=== PATIENT | male | born 1995 | race Caucasian/White ===

== ENCOUNTER 2025-07-27 11:09 | Observation (INO) ==
[2025-07-27] MEDS: SODIUM CHLORIDE 0.9% 1,000 ML IV ONE (11:24)
--- NOTE | 2025-07-27 11:38 | Emergency Department Note ---
History of Present Illness General Chief Complaint: Vomiting Stated Complaint: VOMITING BLOOD, UNABLE TO EAT/DRINK Time Seen by Provider: 07/27/25 11:20 History of Present Illness Provider Complaint: abdominal pain Onset (ago): 3 day(s) Pain Consistency: constant Location: epigastric Severity: moderate Maximum Pain Intensity: 6 Current Pain Intensity: 6 Quality: + stabbing and + sharp Relieved By: + nothing Exacerbated By: + nothing Context: no foreign travel, no possible food poisoning, no sick contacts, no recent antibiotic use, no recent surgery/procedure or no recent injury Associated Symptoms: + nausea, + vomiting, + fever, + chills, + hematemesis (Patient reports mix of hematemesis and coffee-ground emesis) and + headache; no diarrhea, no constipation, no dysuria, no hematochezia, no melena, no hematuria, no chest pain and no breathing difficulty Home Medications Medication Instructions Recorded Confirmed Type omeprazole 40 mg capsule,delayed 40 mg PO BID 07/27/25 07/27/25 History release Allergies Allergy/AdvReac Type Severity Reaction Status Date / Time strawberry Allergy Unknown Unverified 07/27/25 13:15 Past Med/Surg History Problem List (Updated 07/27/25 @ 13:19 by Ilia Bahena MD) Abdominal pain (Acute) UGIB (upper gastrointestinal bleed) (Acute) Medical History (Updated 07/27/25 @ 13:19 by Ilia Bahena MD) No pertinent past medical history No pertinent family history Surgical History (Updated 07/27/25 @ 11:39 by Ilia Bahena MD) No pertinent past surgical history Social History Smoking Status: Current every day smoker Tobacco Type: E-cigarettes / Vaping Preferred Language: Amharic Feels Safe at Home: Yes Physical Exam 2 Vital Signs: Vital Signs - 24 hr 07/27/25 11:11 07/27/25 13:16 Temperature 36.3 C L Temperature Source Temporal Artery Sc an Pulse Rate 83 58 L Respiratory Rate 18 Respiratory Effort / Characteristics Non-Labored Sponta neous Respiratory Depth Normal Respiratory Patter n Regular Blood Pressure 105/70 Blood Pressure Katerina n 81 Pulse Oximetry 98 Oxygen Delivery Me thod Room Air Sepsis Recent Feve r Within 48 Hours No Sepsis New/Unexpla ined Change in Men delia Status N/A Sepsis Action Take n by Nursing No Action Required Physical Exam: Physical Exam GENERAL: oriented to person, place, and time. appears well-developed and well- nourished. She does not appear distressed. HENT: Exam performed. -Head: Normocephalic and atraumatic. -Right Ear: External ear normal. No mastoid erythema -Left Ear: External ear normal. No mastoid erythema -Mouth/Throat: The oropharynx is clear and moist. No trismus in the jaw. No dental abscesses or uvula swelling. No oropharyngeal exudate or tonsillar abscesses. EYES: Conjunctivae and EOM are normal.Right eye exhibits no discharge. Left eye exhibits no discharge. No scleral icterus. NECK: Normal range of motion. Neck supple. No JVD present. No tracheal deviation and normal range of motion present. CV: Normal rate, regular rhythm, normal heart sounds and intact distal pulses. There is no peripheral edema. Palpable radial pulses bue. PULM/CHEST: Effort normal and breath sounds normal. No respiratory distress. No stridor. no wheezes.no rales. -Chest Wall: no tenderness to palpation ABD: The abdomen is soft. Bowel sounds are normal. no distension. No mass is present. There is tenderness to palpation of the epigastric area. There is no rebound, no guarding, no Tatum's sign and no tenderness at McBurney's point. Rovsig negative MUSC/SKEL: Normal range of motion. There is no peripheral edema, tenderness or deformity. NEURO: Motor and sensation grossly intact. SKIN: Skin is warm and dry. not diaphoretic. PSYCH: normal mood and affect. Behavior is normal. Judgment and thought content normal. Course Course 1120: The patient was evaluated in room D5. A complete history and physical exam was performed Cardiac monitoring: An order was placed for continuous cardiac monitoring. The monitor shows a rate of 80 with sinus rhythm interpreted by me 1235: Patient increasingly diaphoretic and reporting increasing pain. Morphine ordered for the patient. Patient will be started on Protonix bolus and drip. 1309: Vital signs stable. Labs and imaging are unremarkable for acute process however given the patient's reported hematemesis coffee-ground emesis and continued abdominal pain patient will be evaluated for admission by the [facility] team for possible GI evaluation and endoscopy. Patient is in agreement with this plan and states he would like to find out why he keeps vomiting blood. 1317: Vital signs stable. Spoke with Dr. Cornelius Benites hospitalist who agrees to evaluate patient for admission. Administered Medications Discontinued Medications Sodium Chloride (Nss) 1,000 mls @ 999 mls/hr IV .Q1H1M ONE Stop: 07/27/25 12:20 Last Admin: 07/27/25 11:24 Dose: 999 mls/hr Documented By: CESIA Morphine Sulfate (Morphine Sulfate 2 Mg/Ml Carp) 2 mg IV NOW STA Stop: 07/27/25 12:35 Last Admin: 07/27/25 12:52 Dose: 2 mg Documented By: CESIA Medical Decision Making Laboratory Data Attestation: I reviewed the patient's lab results. 07/27/25 11:21 07/27/25 11:21 Lab Results 07/27/25 07/27/25 Range/Units 11:21 11:39 WBC 10.24 (4.8-10.8) K/ul RBC 4.95 (4.70-6.10) M/uL Hgb 13.7 L (14.0-18.0) g/dl Hct 40.1 L (42.0-52.0) % MCV 81.0 (80.0-100.0) fL MCH 27.7 (25.0-34.0) pg MCHC 34.2 (32.0-36.0) g/dL RDW Std Deviation 41.6 (36.4-46.3) fL RDW Coeff of Gigi 14.2 (11.5-14.5) % Plt Count 297 (130-400) K/uL MPV 10.6 (9.4-12.4) fL Immature Gran % (Auto) 0.3 % Neut % (Auto) 77.1 % Lymph % (Auto) 15.5 % Orange % (Auto) 6.6 % Eos % (Auto) 0.2 % Baso % (Auto) 0.3 % Neut # (Auto) 7.89 H (1.40-6.50) K/uL Lymph # (Auto) 1.59 (1.20-3.40) K/uL Orange # (Auto) 0.68 H (0.11-0.59) K/uL Eos # (Auto) 0.02 (0.00-0.50) K/uL Baso # (Auto) 0.03 (0.00-0.20) K/uL Immature Gran # (Auto) 0.03 (0.01-0.20) K/uL PT 11.3 (9.0-12.0) Seconds INR 1.1 (0.9-1.1) APTT 27 (21-31) Seconds PTT Ratio 1.0 Sodium 139 (136-145) mmol/L Potassium 3.6 (3.5-5.1) mmol/L Chloride 102 (98-107) mmol/L Carbon Dioxide 26 (21-32) mmol/L Anion Gap 11 (3-11) BUN 15 (6-23) mg/dl Creatinine 1.05 (0.6-1.4) mg/dl Est Cr Clr Drug Dosing 96.2 ml/min eGFR 97.93 BUN/Creatinine Ratio 14.3 (10-20) Glucose 99 (70-99(Fasting)) mg/dl Calcium 9.8 (8.6-10.3) mg/dl Total Bilirubin 0.9 (0.2-1.0) mg/dl AST 19 (13-39) U/L ALT 17 (7-52) U/L Alkaline Phosphatase 55 (34-104) U/L Total Protein 8.6 H (6.0-8.3) gm/dl Albumin 4.5 (3.4-5.0) gm/dl Globulin 4.1 H (2.5-4.0) gm/dl Albumin/Globulin Ratio 1.1 (0.9-2) Lipase 53 (11-82) U/L Blood Type O Negative Antibody Screen NEGATIVE Imaging Data Radiologist's Impression: Abdomen/Pelvis CT 07/27/25 11:[address] WITH IV CONTRAST CT DOSE: 1858.86 mGy.cm HISTORY: abd pain hemetemesis TECHNIQUE: Multiaxial CT images of the abdomen and pelvis were performed following the IV administration of 90 cc of Optiray, A dose lowering technique was utilized adhering to the principles of ALARA. COMPARISON STUDY: None FINDINGS: ABDOMEN: There are gallstones and gallbladder sludge without evidence of acute cholecystitis. Liver, spleen, pancreas, and adrenal glands are unremarkable. Kidneys show no hydronephrosis or calculi. There are a few scattered mesenteric nodules, largest is a lobulated nodule series 6 image 197 at the right upper quadrant measuring 1.5 cm greatest axial dimension by 2.1 cm craniocaudad axial series 6 image 197 and coronal series 600 image 58. Pelvis: Prostate is mildly enlarged. Urinary bladder is nondistended. There is minimal sigmoid diverticulosis. No acute diverticulitis. Normal appendix. No bowel inflammation or obstruction. On the coronal imaging, the distribution of a large portion of the small bowel to the left abdomen suggests a possible large internal hernia without obstruction versus anatomic variation. No free fluid, free air, or abscess. No enlarged adenopathy. Osseous structures: No acute osseous findings. IMPRESSION: 1. Possible large internal hernia without obstruction versus normal variation. 2. A few small mesenteric nodules measuring up to 2 cm. Differential diagnosis includes mesenteritis, early lymphoma, early carcinoid, and reactive lymph nodes. Suggest follow-up CT scan in 6 months to make sure these findings are not progressive. 3. No other acute findings seen. Otherwise as described. ACT 112: Positive. There are findings on this exam that require communication between the performing entity and the patient following Patient Test Result Information Act ([place] Act 112) guidelines. The above report was generated using voice recognition software. It may contain grammatical, syntax or spelling errors. Electronically signed by: José Cabral M.D. 07/27/2025 12:[address] 07/27/25 11:38 CT head/brain wo con CLINICAL HISTORY: beltran. TECHNIQUE: Multiple axial CT images of the head were obtained without contrast. A dose lowering technique was utilized adhering to the principles of ALARA. COMPARISON: None FINDINGS: No intracranial hemorrhage seen. No mass effect, midline shift, or hydrocephalus. No skull fracture seen. Visualized paranasal sinuses and mastoid air cells are clear. IMPRESSION: No acute findings. ACT 112: Negative or not required by law. The above report was generated using voice recognition software. It may contain grammatical, syntax or spelling errors. Electronically signed by: José Cabral M.D. 07/27/2025 12:32 PM [facility] Narrative 1120: The patient was evaluated in room D5. A complete history and physical exam was performed Cardiac monitoring: An order was placed for continuous cardiac monitoring. The monitor shows a rate of 80 with sinus rhythm interpreted by me 1235: Patient increasingly diaphoretic and reporting increasing pain. Morphine ordered for the patient. Patient will be started on Protonix bolus and drip. 1309: Vital signs stable. Labs and imaging are unremarkable for acute process however given the patient's reported hematemesis coffee-ground emesis and continued abdominal pain [facility] and [facility]. Patient is in agreement with this plan and states he would like to find out why he keeps vomiting blood. 1317: Vital signs stable. [facility] patient for admission. Impression & Plan UGIB (upper gastrointestinal bleed), Abdominal pain Discharge Plan Visit Data Chief Complaint: Vomiting Stated Complaint: VOMITING BLOOD, UNABLE TO EAT/DRINK ED Provider: Ilia Bahena Discharge Problem: UGIB (upper gastrointestinal bleed), Abdominal pain Patient Disposition: Admitted As Inpatient Condition: Fair Forms Stand Alone Forms: [facility] [place] [email or web address] Prescriptions Prescriptions: No Action omeprazole 40 mg capsule,delayed release(DR/EC) 40 mg PO BID Referrals Referrals: PCP,NO [Physician] - Discharge Problem: Abdominal pain Qualifiers: Abdominal location: epigastric Qualified Code(s): R10.13 - Epigastric pain
[2025-07-27 11:52] LABS: Hematocrit (blood only) 40.1 % (42.0-52.0); Hemoglobin 13.7 g/dl (14.0-18.0); Immature Granulocytes # (auto) 0.03 K/uL (0.01-0.20); Immature Granulocytes % (auto) 0.3 %; Mean Corpuscular Hemoglobin 27.7 pg (25.0-34.0); Mean Corpuscular Volume 81.0 fL (80.0-100.0); Platelet Count 297 K/uL (130-400); RDW Standard Deviation 41.6 fL (36.4-46.3); Red Blood Count 4.95 M/uL (4.70-6.10); White Blood Count 10.24 K/ul (4.8-10.8)
[2025-07-27 12:02] LABS: Alanine Aminotransferase 17.0 U/L (7-52); Albumin Globulin Ratio 1.1 (0.9-2); Albumin Level 4.5 gm/dl (3.4-5.0); Alkaline Phosphatase 55.0 U/L (34-104); Anion Gap 11.0 (3-11); Bilirubin,Total 0.9 mg/dl (0.2-1.0); Blood Urea Nitrogen 15.0 mg/dl (6-23); Calcium 9.8 mg/dl (8.6-10.3); Carbon Dioxide 26.0 mmol/L (21-32); Chloride 102.0 mmol/L (98-107); Creatinine Clr Calc Pharmacy 96.2 ml/min; Globulin 4.1 gm/dl (2.5-4.0); Glucose 99.0 mg/dl (70-99(Fasting)); Lipase 53.0 U/L (11-82); Potassium 3.6 mmol/L (3.5-5.1); Sodium 139.0 mmol/L (136-145); Total Protein 8.6 gm/dl (6.0-8.3)
[2025-07-27 12:15] LABS: INR 1.1 (0.9-1.1); Partial Thromboplastin Time 27 Seconds (21-31); Prothrombin Time 11.3 Seconds (9.0-12.0)
--- NOTE | 2025-07-27 12:33 | CT Scan Report ---
CT head/brain wo con CLINICAL HISTORY: beltran. TECHNIQUE: Multiple axial CT images of the head were obtained without contrast. A dose lowering tech nique was utilized adhering to the principles of ALARA. COMPARISON: None FINDINGS: No intracranial hemorrhage seen. No mass effect, midline shift, or hydrocephalus. No skull fracture seen. Visualized paranasal sinuses and mastoid air cells are clear. IMPRESSION: No acute findings. ACT 112: Negative or not required by law. The above report was generated using voice recognition software. It may contain grammatical, syntax o r spelling errors. Electronically signed by: José Cabral M.D. 07/27/2025 12:32 PM
[2025-07-27] MEDS: MoRPHine SULFATE 2 MG/ML CARP IV STA (12:52)
--- NOTE | 2025-07-27 12:56 | CT Scan Report ---
ABDOMEN AND PELVIS CT WITH IV CONTRAST CT DOSE: 1858.86 mGy.cm HISTORY: abd pain hemetemesis TECHNIQUE: Multiaxial CT images of the abdomen and pelvis were performed following the IV administrat ion of 90 cc of Optiray, A dose lowering technique was utilized adhering to the principles of ALARA. COMPARISON STUDY: None FINDINGS: ABDOMEN: There are gallstones and gallbladder sludge without evidence of acute cholecystitis. Liver, spleen, pancreas, and adrenal glands are unremarkable. Kidneys show no hydronephrosis or calculi. The re are a few scattered mesenteric nodules, largest is a lobulated nodule series 6 image 197 at the [facility] upper quadrant measuring 1.5 cm greatest axial dimension by 2.1 cm craniocaudad axial series 6 im age 197 and coronal series 600 image 58. Pelvis: Prostate is mildly enlarged. Urinary bladder is nondistended. There is minimal sigmoid divert iculosis. No acute diverticulitis. Normal appendix. No bowel inflammation or obstruction. On the yomi nal imaging, the distribution of a large portion of the small bowel to the left abdomen suggests a po ssible large internal hernia without obstruction versus anatomic variation. No free fluid, free air, or abscess. No enlarged adenopathy. Osseous structures: No acute osseous findings. IMPRESSION: 1. Possible large internal hernia without obstruction versus normal variation. 2. A few small mesenteric nodules measuring up to 2 cm. Differential diagnosis includes mesenteritis, early lymphoma, early carcinoid, and reactive lymph nodes. Suggest follow-up CT scan in 6 months to make sure these findings are not progressive. 3. No other acute findings seen. Otherwise as described. ACT 112: Positive. There are findings on this exam that require communication between the performing entity and the patient following Patient Test Result Information Act ([place] Act 112) guidelines. The above report was generated using voice recognition software. It may contain grammatical, syntax o r spelling errors. Electronically signed by: José Cabral M.D. 07/27/2025 12:54 PM
[2025-07-27] MEDS ORDERED: PROMETHAZINE 25 MG/51 ML BAG IV PRN (13:22)
--- NOTE | 2025-07-27 13:49 | History & Physical Report ---
Date of Service July 27, 2025 Assessment & Plan (1) Abdominal pain: (2) UGIB (upper gastrointestinal bleed): Plan: 29-year-old male with history of terminal ileum ulcer, presenting with abdominal pain and multiple episodes of hematemesis x 3 days. Hematemesis, likely upper GI bleed History of terminal ileum ulcer Blood pressure on the soft side Hemoglobin 13.7, monitor every 6 hours N.p.o. IV Protonix IV fluids, as needed morphine, Phenergan GI consulted, sent a [place] text message to Dr. Murray Kim Vape Use, Medical Marijuana Use DVT Prophylaxis SCDs for now Full code Disposition Admit to PCU Total time spent 60 minutes including discussion with ER provider, review of records, plan of care with patient, etc. plan of care discussed with patient in detail and at length all questions answered he is understanding, agreeable, comfortable with the plan of care History of Present Illness Chief Complaint: abdominal pain, multiple episodes of hematemesis x 3 days Primary Care Provider: YARITZA Ames 29-year-old male with history of terminal ileum ulcer, presenting with abdominal pain and multiple episodes of hematemesis x 3 days. Patient states that he has a history of terminal ileum ulcer, after having a upper GI endoscopy and colonoscopy around 2 years ago. He has been on omeprazole 20 mg twice a day. Since 3 days ago, the patient has been having persistent epigastric pain associated with multiple episodes of hematemesis, and inability to tolerate oral intake. He also has intermittent melena. Denies dizziness, shortness of breath, chest pain. He was instructed by his PCP toProceed to the ER. Upon arrival, blood pressure 105/73, heart rate 83, afebrile. Hemoglobin 13.7 CT abdomen pelvis showing a large hiatal hernia, mesenteric nodules Patient given Protonix drip, IV morphine. On exam, patient seen sitting up in bed, uncomfortable due to persistent epigastric pain No active nausea during exam, no hematemesis while in the ER No dizziness, shortness of breath, chest pain denies alcohol use or NSAID use Does admit to vaping and medical marijuana use No other new symptoms Allergies Allergy/AdvReac Type Severity Reaction Status Date / Time strawberry Allergy Unknown Unverified 07/27/25 13:15 Home Medications Medication Instructions Recorded Confirmed Type omeprazole 40 mg capsule,delayed 40 mg PO BID 07/27/25 07/27/25 History release Past Med/Surg History Problem List (Updated 07/27/25 @ 13:19 by Ilia Bahena MD) Abdominal pain (Acute) UGIB (upper gastrointestinal bleed) (Acute) Medical History (Updated 07/27/25 @ 13:19 by Ilia Bahena MD) No pertinent past medical history No pertinent family history Surgical History (Updated 07/27/25 @ 11:39 by Ilia Bahena MD) No pertinent past surgical history Social History Smoking Status: Current every day smoker Tobacco Type: E-cigarettes / Vaping Preferred Language: Tongan Feels Safe at Home: Yes Review of Systems Review of Systems: all noted and negative except for above Physical Exam Physical Exam: General- oriented x 3, not in distress, speaks in sentences with no effort or accessory muscle use Head- atraumatic Eyes- PERRL, EOMI, anicteric ENT- oropharynx clear Neck- supple, no JVD, no adenopathy, no thyromegaly; carotids +2/2, no bruits appreciated Lungs- clear to auscultation bilaterally, no rales/wheezes Heart- normal rate, regular rhythm; no murmur, no gallop, no rub appreciated Abdomen- normal bowel sounds, nondistended, soft, mild tenderness epigastric region, no masses or hepatosplenomegaly Extremities- no pretibial edema, no calf tenderness; peripheral pulses intact Neuro- alert, oriented x 3; CN 2-12 grossly intact; motor 5/5 bilaterally;sensation 100% on all extremities; no other gross focal neurologic deficits Skin- warm & dry Results & Data Results & Data Vital Signs (Past 12 Hours) Vital Signs Temp Pulse Resp BP Pulse Ox O2 Del Method 07/27/25 13:24 59 L 20 112/67 95 Room Air 07/27/25 13:16 58 L 07/27/25 11:11 36.3 C L 83 18 105/70 98 Room Air all noted and reviewed including below Code Status & VTE Plan VTE Prophylaxis Plan VTE Prophylaxis will be ordered: Yes (1) Abdominal pain Abdominal location: epigastric Qualified Code(s): R10.13 - Epigastric pain
[2025-07-27] MEDS: HYDROmorphone INJ 0.5 MG/0.5 ML SYR IV STA (13:50)
[2025-07-27] MEDS: ACETAMINOPHEN 1,000 MG/100 ML VIAL IV SCH (13:50)
[2025-07-27] MEDS: PANTOprazole 40 MG in DEXTROSE 5% MINI-B 100 ML IV SCH (14:11)
[2025-07-27] MEDS: PANTOPRAZOLE BOLUS/DRIP IV STA (15:03)
--- NOTE | 2025-07-27 15:21 | Gastrointestinal Consultation ---
Date of Consultation July 27, 2025 Assessment & Plan (1) Coffee ground emesis: -Continue IV PPI gtt -Continue to monitor H/H -NPO after midnight for EGD on 07/28/25 -May benefit from repeat CT imaging to ensure resolution of abnormalities in the coming weeks Supervising Physician Co-Signing Physician Notes I saw and examined this patient with our nurse practitioner and agree with her assessment and plan. Clinical picture consistent with an upper GI bleed. Initially developed abdominal pain with nausea and vomiting of bilious material subsequently followed by hematemesis of bright red blood and then coffee ground emesis. With this presentation need to consider Chitra-Carrillo tear in addition to peptic ulcer disease. Denies use of NSAIDs or history of liver disease. CT scan reported by radiology suggest the possibility of an internal hernia versus anatomical variant with small bowel localized predominantly to the left abdomen. No signs of obstruction. Recommend having surgery consult on CT scan abnormality. Patient initially presented with fever possible viral syndrome which led to the vomiting and ultimately an upper GI bleed. Will proceed with endoscopy in AM. Continue IV PPI. History of Present Illness Reason for Consultation: Coffee ground emesis Attending Physician: Rayray Nails MD History of Present Illness Patient is 29 yo male who was experiencing fever, nausea, and vomiting in addition to constipation at home since Saturday07/23/25. He notes that he began vomiting significantly and initially saw bright red hematemesis and then eventually had coffee ground emesis. He notes that he has intermittent epigastr ic pain for 1.5+ years. He has periods of epigastric burning that lasts days. He had a Colonoscopy & EGD 1 year ago-- ulcers on TI apparently. Takes Omeprazole 40 mg BID at home. This GI care was done in [place], [place]. He has been on Carafate in the past as well. He was to have repeat EGD & colonoscopy as an outpatient but did not yet do this. No alcohol, liver disease, abdominal surgery. No significant NSAID use. Mother has a history of colostomy for unspecified bowel perforation. Paternal grandfather with colon cancer. IBD possibly on maternal side. CT Scan of the abdomen/pelvis: IMPRESSION: 1. Possible large internal hernia without obstruction versus normal variation. 2. A few small mesenteric nodules measuring up to 2 cm. Differential diagnosis includes mesenteritis, early lymphoma, early carcinoid, and reactive lymph nodes. Suggest follow-up CT scan in 6 months to make sure these findings are not progressive. 3. No other acute findings seen. Otherwise as described. He notes that he has intermittent associated neuropathy/paresthesias. WBC 10,240. H/H 13.7/40.1. LFTs unremarkable. Lipase 53. He is currently on a Pantoprazole drip. Allergies Allergy/AdvReac Type Severity Reaction Status Date / Time strawberry Allergy Unknown Unverified 07/27/25 13:15 Home Medications Medication Instructions Recorded Confirmed Type omeprazole 40 mg capsule,delayed 40 mg PO BID 07/27/25 07/27/25 History release Patient History Medical History No pertinent past medical history No pertinent family history Surgical History No pertinent past surgical history Social History Smoking Status: Current every day smoker Tobacco Type: E-cigarettes / Vaping Preferred Language: Greenlandic Feels Safe at Home: Yes Review of Systems Constitutional: no fever and no chills Respiratory: no cough and no dyspnea Gastrointestinal: + abdominal pain, + nausea, + coffee bashir und emesis and + hematemesis; no diarrhea/loose stools and no blood in stools Physical Exam Constitutional: well developed Respiratory: normal respiratory effort Cardiovascular: Rate/Rhythm: regular rate Gastrointestinal (Abdomen): Inspection/Auscultation: abdomen not distended Percussion/Palpation: + abdomen tender and abdomen soft Psychiatric: Orientation: alert and oriented x 3 Results & Data Vital Signs (Past 12 Hours) Vital Signs Temp Pulse Resp BP Pulse Ox O2 Del Method 07/27/25 14:18 Room Air 07/27/25 13:30 71 17 121/76 96 Room Air 07/27/25 13:24 59 L 20 112/67 95 Room Air 07/27/25 13:16 58 L 07/27/25 11:11 36.3 C L 83 18 105/70 98 Room Air Laboratory Results Laboratory Results - last 48 hr 07/27/25 07/27/25 11:21 11:39 WBC 10.24 RBC 4.95 Hgb 13.7 L Hct 40.1 L MCV 81.0 MCH 27.7 MCHC 34.2 RDW Std Deviation 41.6 RDW Coeff of Gigi 14.2 Plt Count 297 MPV 10.6 Immature Gran % (Auto) 0.3 Neut % (Auto) 77.1 Lymph % (Auto) 15.5 [place] % (Auto) 6.6 Eos % (Auto) 0.2 Baso % (Auto) 0.3 Neut # (Auto) 7.89 H Lymph # (Auto) 1.59 [place] # (Auto) 0.68 H Eos # (Auto) 0.02 Baso # (Auto) 0.03 Immature Gran # (Auto) 0.03 PT 11.3 INR 1.1 APTT 27 PTT Ratio 1.0 Sodium 139 Potassium 3.6 Chloride 102 Carbon Dioxide 26 Anion Gap 11 BUN 15 Creatinine 1.05 Est Cr Clr Drug Dosing 96.2 eGFR 97.93 BUN/Creatinine Ratio 14.3 Glucose 99 Calcium 9.8 Total Bilirubin 0.9 AST 19 ALT 17 Alkaline Phosphatase 55 Total Protein 8.6 H Albumin 4.5 Globulin 4.1 H Albumin/Globulin Ratio 1.1 Lipase 53 Blood Type O Negative Antibody Screen NEGATIVE Diagnostic Findings Abdomen/Pelvis CT 07/27/25 11:[address] WITH IV CONTRAST CT DOSE: 1858.86 mGy.cm HISTORY: abd pain hemetemesis TECHNIQUE: Multiaxial CT images of the abdomen and pelvis were performed following the IV administration of 90 cc of Optiray, A dose lowering technique was utilized adhering to the principles of ALARA. COMPARISON STUDY: None FINDINGS: ABDOMEN: There are gallstones and gallbladder sludge without evidence of acute cholecystitis. Liver, spleen, pancreas, and adrenal glands are unremarkable. Kidneys show no hydronephrosis or calculi. There are a few scattered mesenteric nodules, largest is a lobulated nodule series 6 image 197 at the right upper quadrant measuring 1.5 cm greatest axial dimension by 2.1 cm craniocaudad axial series 6 image 197 and coronal series 600 image 58. Pelvis: Prostate is mildly enlarged. Urinary bladder is nondistended. There is minimal sigmoid diverticulosis. No acute diverticulitis. Normal appendix. No bowel inflammation or obstruction. On the coronal imaging, the distribution of a large portion of the small bowel to the left abdomen suggests a possible large internal hernia without obstruction versus anatomic variation. No free fluid, free air, or abscess. No enlarged adenopathy. Osseous structures: No acute osseous findings. IMPRESSION: 1. Possible large internal hernia without obstruction versus normal variation. 2. A few small mesenteric nodules measuring up to 2 cm. Differential diagnosis includes mesenteritis, early lymphoma, early carcinoid, and reactive lymph nodes. Suggest follow-up CT scan in 6 months to make sure these findings are not progressive. 3. No other acute findings seen. Otherwise as described. ACT 112: Positive. There are findings on this exam that require communication between the performing entity and the patient following Patient Test Result Information Act ([place] Act 112) guidelines. The above report was generated using voice recognition software. It may contain grammatical, syntax or spelling errors. Electronically signed by: José Cabral M.D. 07/27/2025 12:[address] 07/27/25 11:38 CT head/brain wo con CLINICAL HISTORY: beltran. TECHNIQUE: Multiple axial CT images of the head were obtained without contrast. A dose lowering technique was utilized adhering to the principles of ALARA. COMPARISON: None FINDINGS: No intracranial hemorrhage seen. No mass effect, midline shift, or h ydrocephalus. No skull fracture seen. Visualized paranasal sinuses and mastoid air cells are clear. IMPRESSION: No acute findings. ACT 112: Negative or not required by law. The above report was generated using voice recognition software. It may contain grammatical, syntax or spelling errors. Electronically signed by: José Cabral M.D. 07/27/2025 12:32 PM PG Care Time/CCT Total # of Minutes Spent Total Time Spent with Patient: Total time spent is greater than 50% in coordination of care (as documented) at patient's floor/unit and/or counseling patient: Coding Level of Care Code 01050 IN/OBS CONSULT LVL 4,60M Diagnoses Coffee ground emesis K92.0
--- NOTE | 2025-07-27 15:29 | Electrocardiogram Report ---
Test Reason : Blood Pressure : */* mmHG Vent. Rate : 61 BPM Atrial Rate : 61 BPM P-R Int : 260 ms QRS Dur : 88 ms QT Int : 418 ms P-R-T Axes : 51 51 43 degrees QTcB Int : 420 ms Sinus rhythm with 1st degree A-V block Otherwise normal ECG No previous ECGs available Confirmed by Jermain Kwong ([id number]) on 07/27/2025 3:29:26 PM Referred By: REFERRED SELF Confirmed By: Jermain Kwong
[2025-07-27 17:24] LABS: Hematocrit (blood only) 33.9 % (42.0-52.0); Hemoglobin 11.2 g/dl (14.0-18.0)
[2025-07-27] MEDS: MoRPHine SULFATE 2 MG/ML CARP IV PRN (19:36)
--- NOTE | 2025-07-27 22:25 | CT Scan Report ---
Exam(s): CT ABDOMEN + PELVIS Without Contrast EXAM: CT Abdomen and Pelvis Without Intravenous Contrast CLINICAL HISTORY: ffup, new RUQ pain. TECHNIQUE: Axial computed tomography images of the abdomen and pelvis without intravenous contrast. CTDI is 18.44 mGy and DLP is 935.05 mGy-cm. Automated exposure control was utilized for the study. A dose lowering technique was utilized adhering to the principles of ALARA. COMPARISON: CT abdomen and pelvis with contrast dated 07/27/2025 at 1215 hours FINDINGS: Limitations: There is diffuse respiratory artifact, which degrades image quality throughout the examination. Lung bases: Unremarkable. No mass. No consolidation. ABDOMEN: Liver: Unremarkable. Gallbladder and bile ducts: Subtle noncalcified cholelithiasis noted in the gallbladder, measuring up to 11 mm in diameter, similar to the previous examination. No gallbladder wall thickening or biliary dilatation. Pancreas: Unremarkable. No ductal dilation. Spleen: Unremarkable. No splenomegaly. Adrenals: Unremarkable. No mass. Kidneys and ureters: There is excreted contrast in the renal collecting systems and ureters. No hydronephrosis or significant perinephric abnormality. Stomach and bowel: No evidence for bowel obstruction. Evaluation of the bowel mucosa is slightly limited without contrast; however, no definite focal asymmetry suggested. Minimal stool burden. Diverticulosis without definitive findings to suggest diverticulitis. PELVIS: Appendix: A normal-caliber appendix is noted along the lateral retrocecal region of the right lower quadrant. Bladder: The bladder is mildly distended with excreted contrast. No significant bladder wall thickening, accounting for partial decompression. No stones. Reproductive: Unremarkable as visualized. ABDOMEN and PELVIS: Intraperitoneal space: Unremarkable. No free air. No significant fluid collection. Bones/joints: No acute osseous abnormality. Soft tissues: Unremarkable. Vasculature: Unremarkable. No abdominal aortic aneurysm. Lymph nodes: Unremarkable. No enlarged lymph nodes. IMPRESSION: 1. Subtle noncalcified cholelithiasis noted in the gallbladder, measuring up to 11 mm in diameter, similar to the previous examination. No gallbladder wall thickening or biliary dilatation. 2. No evidence for bowel obstruction. Evaluation of the bowel mucosa is slightly limited without contrast; however, no definite focal asymmetry suggested. Minimal stool burden. Diverticulosis without definitive findings to suggest diverticulitis. No free intraperitoneal fluid or pneumoperitoneum. Electronically signed by: Jose Antonio Vergara MD 07/27/25 22:24 PM
[2025-07-28 00:04] LABS: Hematocrit (blood only) 33.5 % (42.0-52.0); Hemoglobin 11.0 g/dl (14.0-18.0)
[2025-07-28] MEDS: SODIUM CHLORIDE 0.9% 1,000 ML IV ONE (06:06)
[2025-07-28 06:14] LABS: Hematocrit (blood only) 35.3 % (42.0-52.0); Hemoglobin 11.7 g/dl (14.0-18.0); Immature Granulocytes # (auto) 0.02 K/uL (0.01-0.20); Immature Granulocytes % (auto) 0.2 %; Mean Corpuscular Hemoglobin 26.5 pg (25.0-34.0); Mean Corpuscular Volume 80.0 fL (80.0-100.0); Platelet Count 218 K/uL (130-400); RDW Standard Deviation 41.1 fL (36.4-46.3); Red Blood Count 4.41 M/uL (4.70-6.10); White Blood Count 8.32 K/ul (4.8-10.8)
[2025-07-28 06:37] LABS: Alanine Aminotransferase 13.0 U/L (7-52); Albumin Globulin Ratio 1.3 (0.9-2); Albumin Level 4.0 gm/dl (3.4-5.0); Alkaline Phosphatase 44.0 U/L (34-104); Anion Gap 10.0 (3-11); Bilirubin,Total 0.8 mg/dl (0.2-1.0); Blood Urea Nitrogen 11.0 mg/dl (6-23); Calcium 9.0 mg/dl (8.6-10.3); Carbon Dioxide 25.0 mmol/L (21-32); Chloride 104.0 mmol/L (98-107); Creatinine Clr Calc Pharmacy 124.2 ml/min; Globulin 3.0 gm/dl (2.5-4.0); Glucose 81.0 mg/dl (70-99(Fasting)); Potassium 3.4 mmol/L (3.5-5.1); Sodium 139.0 mmol/L (136-145); Total Protein 7.0 gm/dl (6.0-8.3)
[2025-07-28 08:56] LABS: Appearance Urine Clear (Clear); Glucose Urine UA Negative (Negative)
--- NOTE | 2025-07-28 10:22 | History & Physical Bridge Note ---
Date of Service July 28, 2025 History & Physical Bridge Note I have examined the patient, reviewed the History & Physical and in the interval since the performance of the History & Physical I have noted the following changes of clinical significance: no changes noted No bleeding overnight. Patient notes 7 abdominal pain. Keep NPO. Continue PPI gtt. Proceed with EGD today for further evaluation. Supervising Physician Co-Signing Physician Notes I saw and examined this patient with our nurse practitioner and agree with her assessment and plan. Hemodynamically stable no further hematemesis. Will proceed with endoscopy.
[2025-07-28] MEDS: cefTRIAXone SODIUM 2,000 MG/50 ML BAG IV SCH (10:28)
[2025-07-28] MEDS: metroNIDAZOLE 500 MG/100 ML BAG IV SCH (10:29)
--- NOTE | 2025-07-28 11:50 | Ultrasound Report ---
US liver CLINICAL HISTORY: concern for acute cholecystitis COMPARISON STUDY: CT of the abdomen and pelvis July 27, 2025. FINDINGS: There is no biliary ductal dilatation. Hepatic echogenicity is mildly increased. No hepatic lesions are identified. Gallstones and sludge within the gallbladder are noted. There is no gallblad taty wall thickening. No sonographic Tatum sign was elicited. There is no pericholecystic fluid. Panc reas is largely obscured by bowel gas. There is no right hydronephrosis. IMPRESSION: 1. Cholelithiasis. No evidence for acute cholecystitis. 2. No biliary ductal dilatation. 3. Obscured pancreas. ACT 112: Negative or not required by law. Electronically signed by: Bal Beaulieu M.D. 07/28/2025 11:49 AM
--- NOTE | 2025-07-28 12:49 | Hospitalist Progress Note ---
Date of Service July 28, 2025 Assessment & Plan (1) Abdominal pain: (2) UGIB (upper gastrointestinal bleed): Plan: 29-year-old male with history of terminal ileum ulcer, presenting with abdominal pain and multiple episodes of hematemesis x 3 days. Hematemesis, likely upper GI bleed History of terminal ileum ulcer Patient presented to the hospital with nausea, vomiting. Hemoglobin of 13.7 on admission; down trended to 11 and is stabilized Continue on IV Protonix Plan for EGD today Possible biliary colic Abnormal CT abdomen findings CT abdomen pelvis showed "the distribution of a large portion of the small bowel to the left abdomen suggests a possible large internal hernia without obstruction versus anatomic variation". Also found to have few small mesenteric nodules measuring up to 2 cm. Patient reports right upper quadrant pain; liver ultrasound shows cholelithiasis with no gallbladder wall thickening Surgery on board; will appreciate recommendation Patient will need repeat CT abdomen/pelvis in 3 months to follow-up on mesenteric nodule; will need further workup if lymph node continues to be enlarged. DVT prophylaxis SCDs Full code Time spent evaluating patient, direct bedside care, chart review, placing orders, interpretation of diagnostic studies, discussion with consultants, patient, and family members, as well as other required patient management activities is 50 minutes Please note the above document was generated using voice recognition software. It may contain grammatical, syntax or spelling errors. Any formal questions or concerns about the content, text or information contained within the body of this dictation should be directly addressed to the provider for clarification Admission and Anticipated Discharge Date Admission Date: July 27, 2025 Subjective Patient seen and examined at bedside. He continues to report abdominal pain and discomfort. Denies any nausea/vomiting overnight. No fever recorded overnight Review of Systems Review of Systems: All systems reviewed & are unremarkable except as noted in Subjective Physical Exam Physical Exam: Constitutional: Alert oriented x 3; not in distress. Respiratory: normal respiratory effort, lungs clear to auscultation, no wheeze, rales, rhonchi. Normal insp/exp effort, no accessory muscle use Cardiovascular: RRR, no murmur, no edema Vessels: no JVD or carotid bruit Chest: normal inspection of chest Abdomen: Tenderness in right upper quadrant Musculoskeletal: no cyanosis or clubbing, extremities motor strength 5/5 Skin: no rashes, warm and dry normal turgor Neurologic: PERRL, EOMI, accommodation nl, no face palsy, no dysarthria CN's II- XI intact bilaterally and moves all extremities Psychiatric: A+Ox3, euthymic affect Results & Data Results & Data Vital Signs (Past 12 Hours) Vital Signs Temp Pulse Resp BP Pulse Ox O2 Del Method 07/28/25 11:33 36.6 C 57 L 20 122/70 96 Room Air 07/28/25 08:00 Room Air 07/28/25 07:44 36.7 C 49 L 19 111/68 97 Room Air 07/28/25 04:25 36.8 C 44 L 16 112/69 96 Room Air (1) Abdominal pain Abdominal location: epigastric Qualified Code(s): R10.13 - Epigastric pain
--- NOTE | 2025-07-28 13:11 | Anesthesiology Consultation ---
Date of Service July 28, 2025 Assessment & Plan Chart Review Chart Review: Acceptable Risk for Surgery and Patient NOT seen in Pre Admission Testing Consults Requested none ASA ASA3 Proposed Anesthesia Anesthesia Type: MAC Risk / Benefits Reviewed With: PT / POA / Parent / Guardian, Accepts Plan and Informed Consent Obtained History Surgery Operation Date: 07/28/25 16:30 Proposed Procedures p Esophagogastroduodenoscopy Dr. Judy Kim MD Height/Weight Height: 5 ft 7 in Weight: 83.7 kg Allergies Allergy/AdvReac Type Severity Reaction Status Date / Time strawberry Allergy Unknown Unverified 07/27/25 13:15 Medications Home Medications Medication Instructions Recorded Confirmed Last Taken omeprazole 40 mg capsule,delayed 40 mg PO BID 07/27/25 07/27/25 Unknown release Active Medications Generic Name Dose Route Start Last Admin Trade Name Freq PRN Reason Stop Dose Admin Pantoprazole Sodium 40 mg/ 100 mls @ 20 mls/hr 07/27/25 13:00 07/28/25 08:33 Dextrose IV 08/26/25 12:59 8 mg/hr Q5H LIANG 20 mls/hr Administration 8 MG/HR Acetaminophen 1,000 mg in 100 mls @ 400 mls/hr 07/27/25 13:45 07/28/25 05:58 Ofirmev IV 07/30/25 13:44 Infused Q8H LIANG Infusion Sodium Chloride 1,000 mls @ 100 mls/hr 07/28/25 05:58 07/28/25 06:06 Nss IV 07/28/25 15:57 100 mls/hr .Q10H ONE Administration Ceftriaxone Sodium 2,000 mg in 50 mls @ 100 mls/hr 07/28/25 10:30 07/28/25 11:06 Rocephin IV 08/07/25 10:29 Infused Q24H LIANG Infusion Metronidazole 500 mg in 100 mls @ 100 mls/hr 07/28/25 11:00 07/28/25 11:29 Flagyl IV 08/07/25 10:59 Infused Q8H LIANG Infusion Protocol Morphine Sulfate 2 mg 07/27/25 13:22 07/27/25 23:28 Morphine Sulfate 2 Mg/Ml Carp IV 08/10/25 13:21 2 mg Q4H PRN Administration moderate to severe pain NPO Date Last Intake of Fluids: 07/27/25 Time Last Intake of Fluids: 16:00 Date Last Intake of Solids: 07/23/25 Time Last Intake of Solids: 18:00 Past Medical History Medical History No pertinent past medical history No pertinent family history Anemia UGI Bleed Hematemesis Exercise / Class Metabolic Activity II 4-5 Yardwork/Stairs/Walk up hill Past Surgical History Surgical History No pertinent past surgical history Past Anesthesia History No Hx of Anesthesia Complications and No Family Hx of Anesthesia Complications History of PONV No Hx of PONV and No Hx of Motion Sickness Social History Smoking Status: Current every day smoker Hx Alcohol Use: No Hx Substance Use: Yes substance use type: marijuana Substance Use Type Other:: Medical Last Used Substance: Just Prior to Arrival Physical Exam Vital Signs Last Vital Signs Temp 36.6 C 07/28/25 13:03 Pulse 64 07/28/25 13:03 Resp 18 07/28/25 13:03 BP 116/69 07/28/25 13:03 Pulse Ox 98 07/28/25 13:03 O2 Del Method Room Air 07/28/25 13:03 Constitutional + obese; no acute distress ENMT Mouth: no TMJ abnormality Thyromental Distance: > or= 3.5 Finger Breadths Mallampati Class: II Neck normal visual inspection, trachea midline and + facial hair; neck extension not limited Respiratory normal respiratory effort Auscultation: lungs clear to auscultation bilaterally Cardiovascular Rate/Rhythm: regular rate and regular rhythm Heart Sounds: no murmur Vessels: no carotid bruit Musculoskeletal Spine: normal cervical ROM Extremities: extremities normal to inspection Neurologic moves all extremities Motor/Sensory: no sensory deficit Psychiatric Orientation: alert and oriented x 3 Testing Laboratory Results 07/28/25 05:41 PT 11.3 Seconds (9.0-12.0) 07/27/25 11:21 INR 1.1 (0.9-1.1) 07/27/25 11:21 APTT 27 Seconds (21-31) 07/27/25 11:21 Urine Color Yellow 07/28/25 08:47 Urine Appearance Clear (Clear) 07/28/25 08:47 Urine pH 5.5 (4.5-7.5) 07/28/25 08:47 Ur Specific [place] 1.039 (1.000-1.030) H 07/28/25 08:47 Urine Protein Negative (Negative) 07/28/25 08:47 Urine Glucose (UA) Negative (Negative) 07/28/25 08:47 Urine Ketones 3+ (Negative) H 07/28/25 08:47 Urine Nitrite Negative (Negative) 07/28/25 08:47 Ur Leukocyte Esterase Negative (Negative) 07/28/25 08:47 Blood Type O Negative 07/27/25 11:39 Antibody Screen NEGATIVE 07/27/25 11:39 Electrocardiogram Date: 07/27/25 Findings: + NSR @ (SR @ 61 w/ 1st degree AVB)
[2025-07-28] MEDS ORDERED: ATROPINE SULFATE 0.1 MG/ML 10ML SYR IV PRN (13:12)
[2025-07-28 13:16] LABS: Hematocrit (blood only) 34.7 % (42.0-52.0); Hemoglobin 12.2 g/dl (14.0-18.0)
--- NOTE | 2025-07-28 13:58 | Anesthesiology Progress Note ---
Date of Service July 28, 2025 Anesthesia Post Procedure Vital Signs Vital Signs: Temp Pulse Pulse Pulse Resp BP Pulse Ox 07/28/25 13:51 64 16 131/75 97 07/28/25 13:36 59 L 16 118/68 98 07/28/25 13:03 36.6 C 64 18 116/69 98 07/28/25 11:33 36.6 C 57 L 20 122/70 96 07/28/25 08:00 07/28/25 07:44 36.7 C 49 L 19 111/68 97 07/28/25 04:25 36.8 C 44 L 16 112/69 96 07/27/25 23:06 36.8 C 52 L 18 118/72 98 07/27/25 21:45 45 L 07/27/25 19:28 36.7 C 67 18 121/77 97 07/27/25 17:28 37.0 C 84 20 115/70 98 07/27/25 15:30 55 L 07/27/25 15:30 36.9 C 57 L 16 117/68 94 07/27/25 14:18 O2 Del Method 07/28/25 13:51 Room Air 07/28/25 13:36 Room Air 07/28/25 13:03 Room Air 07/28/25 11:33 Room Air 07/28/25 08:00 Room Air 07/28/25 07:44 Room Air 07/28/25 04:25 Room Air 07/27/25 23:06 Room Air 07/27/25 21:45 07/27/25 19:28 Room Air 07/27/25 17:28 Room Air 07/27/25 15:30 07/27/25 15:30 Room Air 07/27/25 14:18 Room Air Pain Intensity Head: Pain Intensity: 5 Medial Abdomen: Pain Intensity: 6 Transfer of Care Handoff Completed per policy Notes Mental Status: alert / awake / arousable Patient Amnestic to Procedure: Yes Nausea / Vomiting: adequately controlled Pain: adequately controlled Airway Patency, RR, SpO2: stable & adequate BP & HR: stable & adequate Hydration State: stable & adequate Anesthetic Complications: no major complications apparent
[2025-07-28] MEDS: THIAMINE HCL 250 MG in SODIUM CHLORIDE 0.9% 50 ML IV SCH (14:38)
--- NOTE | 2025-07-28 15:49 | Surgery Consultation ---
Date of Consultation July 28, 2025 Assessment & Plan (1) Abdominal pain: This is a 29yM who presents to the [facility] ED on 07/27/25 with complaints of abdominal pain associated with nausea and vomiting. Patient states starting Saturday he began having fevers/chills and upper abdominal pain with nausea/vomiting. We have been asked to weigh in regarding possible internal hernia vs anatomical variant on his CT scan in addition to his RUQ pain. Both CT scans show no evidence of bowel obstruction. He does not have any past surgical history making internal hernia less likely. He also underwent a RUQ US that showed + gall stones but no evidence of cholecystitis. Today's blood work shows WBC 8.3, Hbg 12.2, Cr 0.9. His vitals are stable. Patient's abdomen is soft with discomfort in the upper and right side. GI team is on board and planning on performing an EGD today. He could potentially have a gastroenteritis vs ulcer as he has in the past. Do not believe his gallbladder is causing his presenting symptomatology. Do not believe he has a true internal hernia, could be anatomical variant. Agree with GI workup. Continue IV hydration and PPI. He may also see us as an outpatient for consideration of elective kassie down the road should it ever become an issues. Will follow up. as above. I reviewed pt's ct scan with Dr. Beaulieu. Doubt internal hernia. gallstone without cholecystitis. doubt the etiology of his symptoms. suspect gastroenteritis with likel evan lissette tear from vomitting "over 30 times". no current indication for surgical intervention. supportive care (2) Coffee ground emesis: History of Present Illness Attending Physician: Eric Wolff MD History of Present Illness This is a 29yM who presents to the [facility] ED on 07/27/25 with complaints of abdominal pain associated with nausea and vomiting. Patient states starting Saturday he began having fevers/chills and upper abdominal pain with nausea/vomiting. He went to [facility] ER where he was diagnosed with gastritis and ERIKA and sent home. He's continued to have symptoms through the weekend and called his PCP who referred patient to come into the ER. He states he has had >30 bouts of vomiting that initially started out bile, but then progressed to a more coffee ground appearance. He has pain in his upper abdomen. He has felt this in the past, but not to this severity. He has had both EGD and colonoscopy. EGD in the past showed an ulcer in the small bowel that apparently had a benign pathology. He has had polyps on colonoscopy. He also voices a + headache, constipation, and going a long time wihtout voiding since symptoms began. In the ER there was question of internal hernia noted on his admitting CT scan, without any evidence of obstruction. Follow up CT scan show cholelithiasis, no evidence of bowel obstruction, or mention of internal hernia. His kids have recently been sick with HFM disease. The patient never had surgery on his abdomen before. Allergies Allergy/AdvReac Type Severity Reaction Status Date / Time strawberry Allergy Unknown Unverified 07/27/25 13:15 Home Medications Medication Instructions Recorded Confirmed Type omeprazole 40 mg capsule,delayed 40 mg PO BID 07/27/25 07/27/25 History release Patient History Medical History No pertinent past medical history No pertinent family history Surgical History No pertinent past surgical history Social History Smoking Status: Current every day smoker Tobacco Type: E-cigarettes / Vaping Hx Alcohol Use: No Hx Substance Use: Yes Last Used Substance: Just Prior to Arrival Substance Use Type Other:: Medical Preferred Language: Brazilian Communication Ability: Effective Brattice Builder Required: No Beliefs That Will Affect Care: None Current Living Situation: Spouse Feels Safe at Home: Yes Assistive Devices: None Review of Systems Constitutional: + fever and + chills Respiratory: no dyspnea Gastrointestinal: + abdominal pain (upper abdomen), + naus ea, + vomiting and + constipation Genitourinary: + problem reported (infrequent voiding) Physical Exam Physical Exam: awake, alert, no distress Constitutional: well developed and well nourished Respiratory: normal respiratory effort Gastrointestinal (Abdomen): Percussion/Palpation: + abdomen tender (upper abd and off to R) and abdomen soft Results & Data Vital Signs (Past 12 Hours) Vital Signs Temp Pulse Pulse Resp BP Pulse Ox O2 Del Method 07/28/25 14:38 97.9 F 65 19 124/77 96 Room Air 07/28/25 14:32 Room Air 07/28/25 14:08 64 16 121/79 97 Room Air 07/28/25 13:51 64 16 131/75 97 Room Air 07/28/25 13:36 59 L 16 118/68 98 Room Air 07/28/25 13:03 97.9 F 64 18 116/69 98 Room Air 07/28/25 11:33 97.9 F 57 L 20 122/70 96 Room Air 07/28/25 08:00 Room Air 07/28/25 07:44 98.1 F 49 L 19 111/68 97 Room Air 07/28/25 04:25 98.2 F 44 L 16 112/69 96 Room Air Diagnostic Findings US liver CLINICAL HISTORY: concern for acute cholecystitis COMPARISON STUDY: CT of the abdomen and pelvis July 27, 2025. FINDINGS: There is no biliary ductal dilatation. Hepatic echogenicity is mildly increased. No hepatic lesions are identified. Gallstones and sludge within the gallbladder are noted. There is no gallbladder wall thickening. No sonographic Tatum sign was elicited. There is no pericholecystic fluid. Pancreas is largely obscured by bowel gas. There is no right hydronephrosis. IMPRESSION: 1. Cholelithiasis. No evidence for acute cholecystitis. 2. No biliary ductal dilatation. 3. Obscured pancreas. ACT 112: Negative or not required by law Electronically signed by: Bal Beaulieu M.D. 07/28/2025 11:49 AM Exam(s): CT ABDOMEN + PELVIS Without Contrast EXAM: CT Abdomen and Pelvis Without Intravenous Contrast CLINICAL HISTORY: ffup, new RUQ pain. TECHNIQUE: Axial computed tomography images of the abdomen and pelvis without intravenous contrast. CTDI is 18.44 mGy and DLP is 935.05 mGy-cm. Automated exposure control was utilized for the study. A dose lowering technique was utilized adhering to the principles of ALARA. COMPARISON: CT abdomen and pelvis with contrast dated 07/27/2025 at 1215 hours FINDINGS: Limitations: There is diffuse respiratory artifact, which degrades image quality throughout the examination. Lung bases: Unremarkable. No mass. No consolidation. ABDOMEN: Liver: Unremarkable. Gallbladder and bile ducts: Subtle noncalcified cholelithiasis noted in the gallbladder, measuring up to 11 mm in diameter, similar to the previous examination. No gallbladder wall thickening or biliary dilatation. Pancreas: Unremarkable. No ductal dilation. Spleen: Unremarkable. No splenomegaly. Adrenals: Unremarkable. No mass. Kidneys and ureters: There is excreted contrast in the renal collecting systems and ureters. No hydronephrosis or significant perinephric abnormality. Stomach and bowel: No evidence for bowel obstruction. Evaluation of the bowel mucosa is slightly limited without contrast; however, no definite focal asymmetry suggested. Minimal stool burden. Diverticulosis without definitive findings to suggest diverticulitis. PELVIS: Appendix: A normal-caliber appendix is noted along the lateral retrocecal region of the right lower quadrant. Bladder: The bladder is mildly distended with excreted contrast. No significant bladder wall thickening, accounting for partial decompression. No stones. Reproductive: Unremarkable as visualized. ABDOMEN and PELVIS: Intraperitoneal space: Unremarkable. No free air. No significant fluid collection. Bones/joints: No acute osseous abnormality. Soft tissues: Unremarkable. Vasculature: Unremarkable. No abdominal aortic aneurysm. Lymph nodes: Unremarkable. No enlarged lymph nodes. IMPRESSION: 1. Subtle noncalcified cholelithiasis noted in the gallbladder, measuring up to 11 mm in diameter, similar to the previous examination. No gallbladder wall thickening or biliary dilatation. 2. No evidence for bowel obstruction. Evaluation of the bowel mucosa is slightly limited without contrast; however, no definite focal asymmetry suggested. Minimal stool burden. Diverticulosis without definitive findings to suggest diverticulitis. No free intraperitoneal fluid or pneumoperitoneum. Electronically signed by: Jose Antonio Vergara MD 07/27/25 22:24 PM PG Care Time/CCT Total # of Minutes Spent Total Time Spent with Patient: Total time spent is greater than 50% in coordination of care (as documented) at patient's floor/unit and/or counseling patient: Coding Level of Care Code 66114 IN/OBS CONSULT LVL 3,45M Diagnoses Abdominal pain R10.13 Abdominal location: epigastric Coffee ground emesis K92.0 (1) Abdominal pain Abdominal location: epigastric Qualified Code(s): R10.13 - Epigastric pain
[2025-07-28] MEDS: LIDOCAINE 2% 2 ML VIAL/AMP(20MG/ML) INFIL ONE (22:05)
[2025-07-28] MEDS: PROPOFOL IV EMULSION 10 MG/ML 20 ML VIAL IV ONE ×2 (22:05)
[2025-07-29 06:20] LABS: Hematocrit (blood only) 33.4 % (42.0-52.0); Hemoglobin 11.8 g/dl (14.0-18.0); Immature Granulocytes # (auto) 0.03 K/uL (0.01-0.20); Immature Granulocytes % (auto) 0.4 %; Mean Corpuscular Hemoglobin 28.0 pg (25.0-34.0); Mean Corpuscular Volume 79.1 fL (80.0-100.0); Platelet Count 250 K/uL (130-400); RDW Standard Deviation 38.8 fL (36.4-46.3); Red Blood Count 4.22 M/uL (4.70-6.10); White Blood Count 7.31 K/ul (4.8-10.8)
[2025-07-29 06:40] LABS: Anion Gap 7.0 (3-11); Blood Urea Nitrogen 8.0 mg/dl (6-23); Calcium 8.8 mg/dl (8.6-10.3); Carbon Dioxide 26.0 mmol/L (21-32); Chloride 108.0 mmol/L (98-107); Creatinine Clr Calc Pharmacy 140.1 ml/min; Glucose 87.0 mg/dl (70-99(Fasting)); Potassium 3.3 mmol/L (3.5-5.1); Sodium 141.0 mmol/L (136-145)
--- NOTE | 2025-07-29 09:24 | Surgery Progress Note ---
Date of Service July 29, 2025 Assessment & Plan (1) Abdominal pain: Plan: Patient with complaints of abdominal pain and associated with nausea and vomiting. General surgery consulted for possible internal hernia vs anatomical variant on his CT scan in addition to his RUQ US that showed +gall stones but no evidence of cholecystitis. -Patient underwent EGD yesterday with GI with results of single nonbleeding erosion at the GE junction, and nodular and eroded mucosa at the atrium that was biopsied. -He does not have any past surgical history and internal hernia less likely at this time. -Patient with no signs of acute cholecystitis on exam, wbc is wnl, and patient is afebrile. -Patient's diet can be advanced as tolerated at this time. He can also follow up with general surgery as an outpatient for possible elective cholecystectomy due to gallstones. General surgery will sign off at this time, please re-consult with any questions or concerns. Admission and Anticipated Discharge Date Admission Date: July 27, 2025 Subjective Patient seen and evaluated this morning, states he is still having some abdominal pain however is tolerating clear liquids without any issues of nausea or vomiting EGD done yesterday with GI with results of a single nonbleeding erosion at the GE junction, and nodular and eroded mucosa at the atrium that was biopsied. VSS, WBC wnl and afebrile Physical Exam Constitutional: WD/WN, vitals as above Respiratory: normal respiratory effort, lungs clear to auscultation Cardiovascular: RRR, no murmur, no edema Gastrointestinal (Abdomen): Abdomen soft, nondistended, minimal TTP in the epigastric region. No rebound or guarding Skin: no rashes, warm and dry Results & Data Vital Signs (Past 12 Hours) Vital Signs Temp Pulse Pulse Resp BP Pulse Ox O2 Del Method 07/29/25 08:25 36.6 C 57 L 20 128/75 97 Room Air 07/29/25 02:52 36.6 C 65 19 155/88 H 98 Room Air 07/28/25 23:31 36.6 C 51 L 18 107/64 95 Room Air 07/28/25 22:00 49 L PG Care Time/CCT Total # of Minutes Spent Total Time Spent with Patient: Total time spent is greater than 50% in coordination of care (as documented) at patient's floor/unit and/or counseling patient: Coding [place] [address] SUB INP/OBS CARE 11/14MIN Patient Type Established Medical Decision Making Straight Forward Diagnoses Abdominal pain R10.13 Abdominal location: epigastric (1) Abdominal pain Abdominal location: epigastric Qualified Code(s): R10.13 - Epigastric pain
[2025-07-29] MEDS: PANTOprazole 40 MG/10 ML SYR IV SCH (10:22)
[2025-07-29] MEDS: SUCRALFATE 1 GM/10 ML UDC PO SCH (10:22)
--- NOTE | 2025-07-29 10:42 | Gastroenterology Progress Note ---
Date of Service July 29, 2025 Assessment & Plan (1) Abdominal pain: Plan: -CT enterography ordered -Continue PPI -Await biopsies from EGD -Stool calprotectin & CRP ordered/pending -Further recommendations pending results of CT. Please see attending physician statement when available for updates to the plan of care as results return today. Admission and Anticipated Discharge Date Admission Date: July 27, 2025 Supervising Physician Co-Signing Physician Notes I saw and examined this patient with our nurse practitioner and agree with her assessment and plan. Clinically stable still with some mild abdominal pain. Reviewed CT scan and CT enterography with radiology. Some mild nonspecific inflammatory changes noted in the terminal ileum and in the distal ileum somewhat nonspecific but could be secondary to underlying inflammatory bowel disease. Patient has a history of possible ileal ulcers in the past but never been diagnosed. The possibly of an internal hernia is a nonspecific finding based on the small bowel pattern. However no evidence of obstruction not definitive. Would continue to advance patient's diet continue PPI therapy awaiting biopsy results. Ultimately he will need to follow-up with us as an outpatient for further evaluation and likely repeat colonoscopy. Subjective Patient is a 29 yo male with abdominal pain. Patient had an EGD on 07/28/25 that showed gastritis and a single non-bleeding erosion at the GEJ. Biopsies are pending. Patient notes persistent abdominal pain (periumbilical). He notes tenesmus. He was seen by general surgery due to concern of an internal hernia, but was not felt to have any emergent surgical needs. No further n/v/hematemesis/coffee ground emesis. Review of Systems Gastrointestinal: + abdominal pain and + cramping; no coff ee ground emesis, no hematemesis, no blood in stools and no melena Physical Exam Gastrointestinal (Abdomen): Inspection/Auscultation: abdomen normal to inspection and normal bowel sounds; abdomen not distended Percussion/Palpation: + abdomen tender and abdomen soft Results & Data Results & Data Vital Signs (Past 12 Hours) Vital Signs Temp Pulse Resp BP Pulse Ox O2 Del Method 07/29/25 08:25 36.6 C 57 L 20 128/75 97 Room Air 07/29/25 02:52 36.6 C 65 19 155/88 H 98 Room Air 07/28/25 23:31 36.6 C 51 L 18 107/64 95 Room Air PG Care Time/CCT Total # of Minutes Spent Total Time Spent with Patient: Total time spent is greater than 50% in coordination of care (as documented) at patient's floor/unit and/or counseling patient: Coding Level of Care Code 67104 SUB INP/OBS CARE 2/35MIN Diagnoses Abdominal pain R10.13 Abdominal location: epigastric (1) Abdominal pain Abdominal location: epigastric Qualified Code(s): R10.13 - Epigastric pain
[2025-07-29] MEDS: CAPSAICIN CR 0.075% 60 GM TUBE EXT SCH (10:57)
[2025-07-29] MEDS: OPTIRAY 320 100ml IV ONE (11:24)
--- NOTE | 2025-07-29 12:02 | Hospitalist Progress Note ---
Date of Service July 29, 2025 Assessment & Plan (1) Abdominal pain: (2) UGIB (upper gastrointestinal bleed): Plan: 29-year-old male with history of terminal ileum ulcer, presenting with abdominal pain and multiple episodes of hematemesis x 3 days. Hematemesis Erosion at GE junction Patient presented to the hospital with nausea, vomiting. Hemoglobin of 13.7 on admission; down trended to 11 and is stabilized EGD on 07/28 shows single small nonbleeding erosion at the GE junction; patchy moderate mucosal changes characterized by nodularity and erosion found in gastric antrum. biopsy pending We discussed patient's possible cause for nausea/vomiting; discussed the possibility of cannabinoid hyperemesis syndrome. Patient uses medical marijuana for chronic back pain/sciatica pain. We discussed trial of amitriptyline to see if it will help with the neuropathic pain as well as help with cannabinoid hyperemesis syndrome Patient is being planned for CT enteroscopy today by GI. CRP ordered Continue IV Protonix Plan to transition to regular diet after CT enteroscopy Possible biliary colic Abnormal CT abdomen findings CT abdomen pelvis showed "the distribution of a large portion of the small bowel to the left abdomen suggests a possible large internal hernia without obstruction versus anatomic variation". Also found to have few small mesenteric nodules measuring up to 2 cm. Patient reports right upper quadrant pain; liver ultrasound shows cholelithiasis with no gallbladder wall thickening Patient will need repeat CT abdomen/pelvis in 3 months to follow-up on mesenteric nodule; will need further workup if lymph node continues to be enlarged.I discussed this with the patient at bedside on 07/29; he is agreeable with the plan and will follow-up with his primary care doctor to obtain the repeat CT abdomen pelvis Surgery did not recommend any further evaluation for the CT abdomen finding DVT prophylaxis SCDs Full code Time spent evaluating patient, direct bedside care, chart review, placing orders, interpretation of diagnostic studies, discussion with consultants, patient, and family members, as well as other required patient management activities is 50 minutes Please note the above document was generated using voice recognition software. It may contain grammatical, syntax or spelling errors. Any formal questions or concerns about the content, text or information contained within the body of this dictation should be directly addressed to the provider for clarification Admission and Anticipated Discharge Date Admission Date: July 27, 2025 Subjective Patient seen and examined at bedside. Patient reports that he continues to have periumbilical pain today. Reports that he was not able to get much sleep. Denies any nausea or vomiting today Review of Systems Review of Systems: All systems reviewed & are unremarkable except as noted in Subjective Physical Exam Physical Exam: Constitutional: Alert oriented x 3; not in distress. Respiratory: normal respiratory effort, lungs clear to auscultation, no wheeze, rales, rhonchi. Normal insp/exp effort, no accessory muscle use Cardiovascular: RRR, no murmur, no edema Vessels: no JVD or carotid bruit Chest: normal inspection of chest Abdomen: Tenderness around periumbilical region Musculoskeletal: no cyanosis or clubbing, extremities motor strength 5/5 Skin: no rashes, warm and dry normal turgor Neurologic: PERRL, EOMI, accommodation nl, no face palsy, no dysarthria CN's II- XI intact bilaterally and moves all extremities Psychiatric: A+Ox3, euthymic affect Results & Data Results & Data Vital Signs (Past 12 Hours) Vital Signs Temp Pulse Pulse Resp BP Pulse Ox O2 Del Method 07/29/25 11:00 59 L 07/29/25 08:25 36.6 C 57 L 20 128/75 97 Room Air 07/29/25 02:52 36.6 C 65 19 155/88 H 98 Room Air (1) Abdominal pain Abdominal location: epigastric Qualified Code(s): R10.13 - Epigastric pain
--- NOTE | 2025-07-29 13:08 | CT Scan Report ---
CT enterography CLINICAL HISTORY: Abdominal pain; history of abnormal colonoscopy COMPARISON STUDY: CT of the abdomen and pelvis July 27, 2025. Right upper quadrant ultrasound Octo 2024. TECHNIQUE: The patient ingested oral Breeza. Axial images of the abdomen and pelvis were obtained acc ording to enterography protocol. Intravenous injection of 93 cc Optiray 320 IV was uneventful. Sagitt al and coronal reformats were viewed. A dose lowering technique was utilized adhering to the principl es of KVNG. FINDINGS: Visualized lung bases are unremarkable. There is no pneumatosis, free air or portal venous gas. The liver, spleen, adrenal glands, kidneys and pancreas are unremarkable. There is no biliary or pancreatic ductal dilatation. The gallstones shown on prior ultrasound are not evident by CT. There is no evidence for acute cholecystitis. Prominent ileocolic lymph nodes are again noted. An index nod e on image 157 of 437 measures 1.3 x 1.1 cm. There is no evidence for a bowel obstruction. The append ix is normal. There is mucosal hyperemia with possible associated wall thickening of the terminal ile um which extends for approximately 5 cm in length. This does not result in a bowel obstruction. No as sociated fluid collection or fistula is identified. There is also a possible additional site of mucos al hyperemia within the distal ileum on image 254. This extends for approximately 3 cm. IMPRESSION: 1. No bowel obstruction. Normal appendix. 2. Mucosal hyperemia and mild wall thickening of the terminal ileum which extends for approximately 5 cm. This represents a nonspecific ileitis which could be infectious or inflammatory in etiology. Inf lammatory bowel disease is within the differential. Possible additional short segment focus of mucosa l hyperemia within the distal ileum, as described above. 3. Mildly enlarged ileocolic lymph nodes which are nonspecific but likely reactive. ACT 112: Negative or not required by law. Electronically signed by: Bal Beaulieu M.D. 07/29/2025 1:06 PM
[2025-07-29] MEDS: Nursing to Pharmacy Communication SCH (13:09)
[2025-07-29] MEDS: ACETAMINOPHEN 1,000 MG/100 ML VIAL IV PRN (22:56)
[2025-07-29] MEDS: AMITRIPTYLINE HCL 25 MG TAB PO SCH (23:04)
[2025-07-30 04:19] VITALS: O2SAT 97
[2025-07-30 06:31] LABS: Hematocrit (blood only) 35.8 % (42.0-52.0); Hemoglobin 12.1 g/dl (14.0-18.0); Immature Granulocytes # (auto) 0.06 K/uL (0.01-0.20); Immature Granulocytes % (auto) 0.7 %; Mean Corpuscular Hemoglobin 27.1 pg (25.0-34.0); Mean Corpuscular Volume 80.1 fL (80.0-100.0); Platelet Count 285 K/uL (130-400); RDW Standard Deviation 39.8 fL (36.4-46.3); Red Blood Count 4.47 M/uL (4.70-6.10); White Blood Count 8.55 K/ul (4.8-10.8)
[2025-07-30 06:55] LABS: Anion Gap 6.0 (3-11); Blood Urea Nitrogen 9.0 mg/dl (6-23); Calcium 9.2 mg/dl (8.6-10.3); Carbon Dioxide 28.0 mmol/L (21-32); Chloride 107.0 mmol/L (98-107); Creatinine Clr Calc Pharmacy 110.3 ml/min; Glucose 102.0 mg/dl (70-99(Fasting)); Potassium 3.3 mmol/L (3.5-5.1); Sodium 141.0 mmol/L (136-145)
[2025-07-30 08:10] VITALS: RESP 19
[2025-07-30] MEDS ORDERED: MoRPHine SULFATE 4 MG/ML 1 ML CARP\\VIAL IV PRN (08:22)
[2025-07-30 12:11] VITALS: BP 118/78; PULSE 55; TEMP 98.2
--- NOTE | 2025-07-30 12:15 | Discharge Summary ---
Date of Service July 30, 2025 Admission HPI Per Admitting Provider 29-year-old male with history of terminal ileum ulcer, presenting with abdominal pain and multiple episodes of hematemesis x 3 days. Patient states that he has a history of terminal ileum ulcer, after having a upper GI endoscopy and colonoscopy around 2 years ago. He has been on omeprazole 20 mg twice a day. Since 3 days ago, the patient has been having persistent epigastric pain associated with multiple episodes of hematemesis, and inability to tolerate oral intake. He also has intermittent melena. Denies dizziness, shortness of breath, chest pain. He was instructed by his PCP Viri to the ER. Upon arrival, blood pressure 105/73, heart rate 83, afebrile. Hemoglobin 13.7 CT abdomen pelvis showing a large hiatal hernia, mesenteric nodules Patient given Protonix drip, IV morphine. On exam, patient seen sitting up in bed, uncomfortable due to persistent epigastric pain No active nausea during exam, no hematemesis while in the ER No dizziness, shortness of breath, chest pain denies alcohol use or NSAID use Does admit to vaping and medical marijuana use No other new symptoms Admission Exam Per Admitting Provider General- oriented x 3, not in distress, speaks in sentences with no effort or accessory muscle use Head- atraumatic Eyes- PERRL, EOMI, anicteric ENT- oropharynx clear Neck- supple, no JVD, no adenopathy, no thyromegaly; carotids +2/2, no bruits appreciated Lungs- clear to auscultation bilaterally, no rales/wheezes Heart- normal rate, regular rhythm; no murmur, no gallop, no rub appreciated Abdomen- normal bowel sounds, nondistended, soft, mild tenderness epigastric region, no masses or hepatosplenomegaly Extremities- no pretibial edema, no calf tenderness; peripheral pulses intact Neuro- alert, oriented x 3; CN 2-12 grossly intact; motor 5/5 bilaterally;sensation 100% on all extremities; no other gross focal neurologic deficits Skin- warm & dry Principal Diagnosis Hematemesis Erosion at GE junction Discharge Exam Constitutional: WD/WN, vitals as above, NAD, sitting up in bed, pleasant, conversing easily Respiratory: normal respiratory effort, lungs clear to auscultation, no wheeze, rales, rhonchi. Normal insp/exp effort, no accessory muscle use Cardiovascular: RRR, no murmur, no edema Vessels: no JVD or carotid bruit Chest: normal inspection of chest Abdomen: normal bowel sounds, soft, nontender, no hepatosplenomegaly Musculoskeletal: no cyanosis or clubbing, extremities motor strength 5/5 Skin: no rashes, warm and dry normal turgor Neurologic: PERRL, EOMI, accommodation nl, no face palsy, no dysarthria CN's II- XI intact bilaterally and moves all extremities Psychiatric: A+Ox3, euthymic affect Discharge Data Allergies Allergy/AdvReac Type Severity Reaction Status Date / Time strawberry Allergy Unknown Unverified 07/27/25 13:15 Consultations 07/27/25 13:04 ED Decision to Admit Stat 07/27/25 15:10 Consult Gastroenterology Routine 07/28/25 07:42 Consult General Surgery Routine Procedures Performed Operation Date: 07/28/25 16:30 Actual Procedures p EGD Biopsy Cytology - Murray Kim MD Ordered Studies 07/27/25 11:30 CT abd pelvis IV con only Stat 07/27/25 11:38 CT head/brain wo con Stat 07/27/25 20:29 CT Abd and Pelvis [CT abd pelvis wo con] Stat 07/28/25 09:40 US liver Routine 07/29/25 09:54 CT enterography Routine Hospital Course (1) Abdominal pain: (2) UGIB (upper gastrointestinal bleed): 29-year-old male with history of terminal ileum ulcer, presenting with abdomi nal pain and multiple episodes of hematemesis x 3 days. Hematemesis Erosion at GE junction Patient presented to the hospital with nausea, vomiting. Hemoglobin of 13.7 on admission; down trended to 11 and is stabilized around 11 to 12 EGD on 07/28 shows single small nonbleeding erosion at the GE junction; patchy moderate mucosal changes characterized by nodularity and erosion found in gastric antrum. biopsy pending Patient was treated with IV Protonix during the hospitalization; was given prescription for omeprazole twice a day and Carafate. Biopsy revealed chronic gastritis. Patient had also undergone CT enteroscopy which showed mucosal hyperemia and mild wall thickening of the terminal ileum. GI recommended outpatient colonoscopy. At the time of the discharge, discussion was done with GI regarding follow-up as outpatient for colonoscopy. We discussed possible causes for recurrent nausea/vomiting. We discussed possibility of hyperemesis cannabinoid syndrome as one of the causes. Patient was started on amitriptyline 25 mg at at bedtime for it as well as for sciatica. Patient was given 4 weeks prescription with goals of titrating up the dose with his primary care provider if he feels good relief with the medication. Patient did not have abdominal pain or discomfort at the time of the discharge and was tolerating regular diet. The CT abdomen pelvis on admission had shown enlarged mesenteric node; I discussed CT abdomen/pelvis to be done as outpatient in 3 months time to ensure improvement; patient verbalized understanding and will follow-up with his primary care doctor regarding it. Surgery was consulted for possibility of biliary colic; recommended no indication for surgical intervention at this time. Please note the above document was generated using voice recognition software. It may contain grammatical, syntax or spelling errors. Any formal questions or concerns about the content, text or information contained within the body of this dictation should be directly addressed to the provider for clarification Total Time Total Time Spent Total Time Spent (In Minutes): 45 Total Time Includes: Examination of the Patient, Discharge Planning, Medication Reconciliation, Communication With Other Providers and Other Discharge Plan Discharge Items Patient Disposition: Home - Self-Care Reason For Visit: GI BLEED Discharge Diagnosis: Hematemesis Erosion at GE junction Condition on Discharge: Fair Activity: Resume your previous activity Non-emergency contact: Primary Care Provider Call non-emergency contact if: you have any medication questions and your symptoms worsen Follow-up/Referrals: Ludivina Ralph PA-C [Physician Dental Hygiene Instructor] - (The office will call you for a follow up appointment.) Naina Kimbrough CRNP [Primary Care Provider] - 08/04/25 1:45 pm (Please call the office if this date or time does not work for you. ) Diet: Regular Addtl Attending Provider Instructions: You were admitted to the hospital and underwent endoscopy which showed gastric erosion and nodular/eroded mucosa in the antrum. Biopsy of the lesions showed chronic gastritis. Please continue to take omeprazole twice a day. You are also prescribed Carafate for 2 weeks as well. You underwent CT abdomen/pelvis which showed small mesenteric nodules. Please obtain CT abdomen/pelvis in 3 months time to ensure the nodules have resolved You also underwent CT enterography to look at the small bowel. There was noted to have mild wall thickening of the terminal ileum ( end part of small bowel). You will need colonoscopy as outpatient. [facility] has been informed about follow-up. You should expect call from them. If you do not receive any call within the next week; please reach out to [facility] or follow-up with your regular GI provider to schedule the colonscopy. You are also prescribed a cream to be applied on abdomen twice a day if you experience nausea and vomiting. You have been prescribed amitriptyline 25 mg to be taken at night to help with nausea/vomiting as well as sciatica. If you tolerate it well and it is helpful; the dose can be increased gradually in 3 to 4 weeks time. An appointment has been set up with your primary care doctor to discuss about it. Pending Studies at Discharge: No Stand-Alone Forms: My [facility], Smoking Cessation Medications and DC Order Prescriptions: New sucralfate 100 mg/mL Suspension 1 g PO ACHS 14 Days Qty: 140 0RF amitriptyline 25 mg Tablet 25 mg PO HS 28 Days Qty: 28 0RF Zostrix 0.033 % Cream 1 applic EXT BID 7 Days Qty: 56.6 0RF Continued omeprazole 40 mg capsule,delayed release(DR/EC) 40 mg PO BID 30 Days Qty: 60 0RF Discharge Orders: Discharge Order (Routine); Ordered 07/30/25 Ordered By: Eric Wolff Admission Data Admit Date/Time: 07/27/25 13:21 Attending Provider: Eric Wolff Admit Provider: Rayray Nails Primary Care Provider: Naina Kimbrough Other Providers: Rayray Nails; Murray Kim I; Jose Antonio Kelsey Other Interventions: Discharge Summary Assessment (RN) Last Done: 07/30/25 12:04
== END 2025-07-30 13:50 | disposition home or self-care (01) | DRG 378 ==
LOC: ED 11:09 → SUATTDRO 13:21 → INTOOBSV 13:21 → 4W 13:21